=== PATIENT | female | born 1975 | race Caucasian/White ===

== ENCOUNTER 2017-02-16 05:56 | Day surgery (SDC) | payer OTHER ==
[2017-02-16] VITALS (11 sets, daily range): BP systolic 96–121; BP diastolic 46–64; PULSE 68–88; RESP 16–18; Ht 157.5 cm; Wt 70.8 kg
[~2017-02-16] VITALS: Ht 157.5 cm; Wt 70.8 kg
[2017-02-16] MEDS ORDERED: FENTAnyl 50 MCG/ML VIAL IV PRN ×2 (06:30)
[2017-02-16] MEDS ORDERED: MIDAZOLAM 1 MG/ML 2 ML INJ IV PRN (06:30)
[2017-02-16] MEDS ORDERED: LIDOCAINE 2% (SDV) 5 ML INJ ONE (06:30)
[2017-02-16] MEDS ORDERED: MIDAZOLAM 1 MG/ML 2 ML INJ ONE (06:30)
[2017-02-16] MEDS ORDERED: ATROPINE 1 MG/10 ML SYRINGE IV PRN (06:30)
[2017-02-16] MEDS ORDERED: DIPHENHYDRAMINE 50 MG INJ IV PRN (06:30)
[2017-02-16] MEDS ORDERED: morphine (1 MG/ML) 10ML SYRINGE IV PRN ×3 (06:30)
[2017-02-16] MEDS ORDERED: ROCURONIUM 50 MG INJ ONE (06:30)
[2017-02-16] MEDS ORDERED: FENTAnyl 50 MCG/ML VIAL ONE (06:30)
[2017-02-16] MEDS ORDERED: HYDROmorphONE (0.2 MG/ML) 10ML SYG IV PRN ×3 (06:30)
[2017-02-16] MEDS ORDERED: ONDANSETRON 4 MG INJ IV PRN (06:30)
[2017-02-16] MEDS ORDERED: GLYCOPYRROLATE 0.4 MG INJ ONE (06:30)
[2017-02-16] MEDS ORDERED: PROPOFOL 20 ML ONE (06:30)
[2017-02-16] MEDS ORDERED: LABETALOL HCL 20MG INJ IV PRN (06:30)
[2017-02-16] MEDS ORDERED: OXYCODONE/ACETAMINOPHEN (5/325) TAB PO PRN ×2 (06:30)
[2017-02-16] MEDS ORDERED: EPHEDrine SULFATE 50 MG/5 ML SYG IV PRN (06:30)
[2017-02-16] MEDS ORDERED: hydrALAzine 20 MG INJ IV PRN (06:30)
[2017-02-16] MEDS ORDERED: MEPERIDINE 25 MG INJ IV PRN (06:30)
[2017-02-16] MEDS ORDERED: NEOSTIGMINE 3 MG/3 ML SYRINGE ONE (06:30)
--- NOTE | 2017-02-16 06:39 | RADRPT ---
PROCEDURE: XR Chest. CLINICAL INDICATION: Preop TECHNIQUE: A single AP view of the chest was obtained. COMPARISON: None. FINDINGS: No focal airspace opacification, pleural effusion or pneumothorax is seen. The cardiomediastinal si lhouette is within normal limits for size. The osseous structures are unremarkable. IMPRESSION: Unremarkable chest x-ray. RPTAT: HH .Zoe Doherty MD, MD Date Time Electronically viewed and signed by .Zoe Doherty MD, on 02/16/2017 06:39 .G/
[2017-02-16] MEDS ORDERED: ONDANSETRON 4 MG INJ ONE (06:43)
[2017-02-16] MEDS ORDERED: DEXAMETHASONE 4 MG/ML 1 ML INJ ONE (06:43)
[2017-02-16] MEDS ORDERED: CEFAZOLIN 1 GM INJ ONE (07:00)
--- NOTE | 2017-02-16 08:21 | RADRPT ---
Vent Rate: 64 bpm RR Interval: 0 msec VA Interval: 142 msec QRS Duration: 86 msec QT Interval: 408 msec QTC Interval: 420 msec P-R-T [place]: 69 - 67 - 55 degrees Normal sinus rhythm Normal ECG Electronically Signed By: Luiz Mcconnell [id number]
--- NOTE | 2017-02-16 09:01 | OPR ---
Date/Time of Note Date/Time of Note DATE: 02/16/17 TIME: 08:55 Operative Report Procedure Date: Feb 16, 2017 Preoperative Diagnosis Menorrhagia Anemia submucosal mass with blood flow on sono suggestive of fibroids Postoperative Diagnosis Same Thick Endometrium and multiple polyps Operation/Procedure Performed Directed hysteroscopic Dilatation and curettage, hysteroscopy, hysteroscopic polypectomy Surgeon Mely Abdi MD Supervisor Electronics Processing none Anesthesia Type: general Estimated Blood Loss: minimal Transfusion none Specimen endometrial resection and polyps Grafts/Implants none Tubes/Drains none Complications none Pt Condition Post Procedure: stable Disposition: PACU Procedure Description Fluid deficit was 1100 ml CONSENT: Please see preoperative notes from my office for the consent process. DESCRIPTION OF PROCEDURE: She was taken to the operating room and general anesthesia was induced. She was prepped and draped in the usual sterile fashion. Surgical time out was done. The patient and procedure were identified. The anterior lip of the cervix was grasped with a single-tooth tenaculum and dilated to size 6 Hegar dilators. The hysteroscope Symphion was inserted and the endometrial cavity was visualized clearly. At this time the resectoscope was inserted and the endometrial polyps and endometrium was resected. Pathology was sent to the lab. The tenaculum was removed and there was no bleeding from the tenaculum site. The patient tolerated the procedure well. MELY ABDI MD Feb 16, 2017 09:01
== END 2017-02-16 10:31 | disposition home or self-care (01) ==
LOC: SDS 05:56
PROVIDERS: ATTEND Specialist
DX: N92.0 Excessive and frequent menstruation with regular cycle (principal); D25.9 Leiomyoma of uterus, unspecified
CPT/HCPCS: 58558; 71010; 93005; J0690; J1100; J2250; J2405; J2710; J3010; Z7512; Z7610